=== PATIENT | female | born 2000 | race Caucasian/White ===

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

== ENCOUNTER 2021-12-07 20:39 | Emergency (ER) | payer OTHER ==
[2021-12-07 20:55] VITALS: BP 108/74; PULSE 96; TEMP 97.8; BMI 24.7
== END 2021-12-07 21:44 | disposition home or self-care (01) ==
LOC: JERFT 20:39
DX: Z48.02 Encounter for removal of sutures (principal)
CPT/HCPCS: 99281-25

== ENCOUNTER 2022-08-07 17:05 | Emergency (ER) | payer OTHER ==
[2022-08-07 17:55] VITALS: BP 117/78; PULSE 77; RESP 16; TEMP 98.6; BMI 25.1
[2022-08-07 19:18] LABS: BASO % 0.4 % (0-2.0); HEMATOCRIT 43.2 % (32.4-45.2); HEMOGLOBIN 14.3 GM/dL (10.7-15.3); LYMPH % 24.1 % (8-40); MCH 28.3 pg (25.7-33.7); MCHC 33.2 g/dl (32.0-36.0); MEAN PLT VOLUME 9.5 fl (7.5-11.1); MONO % 9.1 % (3.8-10.2); NEUT % 64.4 % (42.8-82.8); PLATELET COUNT 244 10^3/uL (134-434); RBC 5.07 M/mm3 (3.60-5.2); RDW 12.8 % (11.6-15.6); WHITE BLOOD COUNT 7.7 K/mm3 (4.0-10.0)
[2022-08-07 19:33] LABS: CALCIUM 9.4 mg/dL (8.5-10.1)
[2022-08-07 19:34] LABS: ALBUMIN 4.4 g/dl (3.4-5.0); BLOOD UREA NITROGEN 6.9 mg/dL (7-18)
[2022-08-07 19:37] LABS: CREATININE 0.7 mg/dL (0.55-1.3)
[2022-08-07 19:39] LABS: BILIRUBIN,TOTAL 0.5 mg/dL (0.2-1); TOT PROT 8.1 g/dl (6.4-8.2)
[2022-08-07 19:44] LABS: EPI CELLS 12 /uL (0-25.1); HYALINE CASTS 1 /uL (0-3.1); PH,URINE 5.5 (5.0-8.0); URINE APPEARANCE CLEAR; URINE BACTERIA 67 /uL (0-1359); URINE BILIRUBIN NEGATIVE (NEGATIVE); URINE COLOR YELLOW; URINE GLUCOSE (UA) NEGATIVE (NEGATIVE); URINE KETONE NEGATIVE (NEGATIVE); URINE LEUK ESTERASE NEGATIVE (NEGATIVE); URINE NITRITE NEGATIVE (NEGATIVE); URINE PROTEIN NEGATIVE (NEGATIVE); URINE RBC 15 /uL (0-23.9); URINE UROBILINOGEN 0.2 mg/dL (0.2-1.0); URINE WBC 8 /uL (0-25.8)
[2022-08-07] MEDS ORDERED: RHO(D) IMMUNE GLOBULIN 1,500 UNIT DISP.SYRIN IM ONE (22:11)
== END 2022-08-07 22:57 | disposition home or self-care (01) ==
LOC: JERFT 17:05
PROC: 3E0234Z Introduction of Serum, Toxoid and Vaccine into Muscle, Percutaneous Approach (ICD-10-PCS; principal; 2022-08-07)
DX: O26.851 Spotting complicating pregnancy, first trimester (principal); Z3A.01 Less than 8 weeks gestation of pregnancy
CPT/HCPCS: 36415; 76817-TC; 80053; 81003; 84702; 85025; 86850; 86900; 86901; 86999; 87086; 99284-25; J1561

== ENCOUNTER 2022-08-09 20:58 | Emergency (ER) | payer OTHER ==
[2022-08-09 21:02] VITALS: BP 112/75; PULSE 90; RESP 18; TEMP 98.1; BMI 25.1
[2022-08-10] MEDS ORDERED: SODIUM PHOSPHATE/NA BIPHOS 133 ML ENEMA PR ONE (00:39)
== END 2022-08-10 00:49 | disposition home or self-care (01) ==
LOC: JERFT 20:58
DX: O03.9 Complete or unspecified spontaneous abortion without complication (principal); K59.00 Constipation, unspecified
CPT/HCPCS: 36415; 76817-TC; 84702; 99284-25

== ENCOUNTER 2022-09-05 20:26 | Emergency (ER) | payer OTHER ==
[2022-09-05 21:00] VITALS: PULSE 106; RESP 20; TEMP 97.6
[2022-09-05 21:46] VITALS: BP 107/74; BMI 25.4
[2022-09-06] MEDS ORDERED: ONDANSETRON 4 MG/2 ML VIAL ONE (00:54)
[2022-09-06 01:24] LABS: BASO % 0.4 % (0-2.0); EOS % 2.2 % (0-4.5); HEMOGLOBIN 12.6 GM/dL (10.7-15.3); LYMPH % 29.6 % (8-40); MCH 27.7 pg (25.7-33.7); MCHC 33.1 g/dl (32.0-36.0); MEAN CELL VOLUME 83.6 fl (80-96); MEAN PLT VOLUME 9.6 fl (7.5-11.1); MONO % 11.3 % (3.8-10.2); NEUT % 56.5 % (42.8-82.8); PLATELET COUNT 236 10^3/uL (134-434); RBC 4.54 M/mm3 (3.60-5.2); RDW 12.6 % (11.6-15.6); WHITE BLOOD COUNT 7.9 K/mm3 (4.0-10.0)
[2022-09-06 01:55] LABS: ALBUMIN 3.7 g/dl (3.4-5.0); BLOOD UREA NITROGEN 10.9 mg/dL (7-18)
[2022-09-06 01:58] LABS: CREATININE 0.7 mg/dL (0.55-1.3)
[2022-09-06 02:00] LABS: BILIRUBIN,TOTAL 0.4 mg/dL (0.2-1); TOT PROT 7.2 g/dl (6.4-8.2)
== END 2022-09-06 03:51 | disposition home or self-care (01) ==
LOC: JER 20:26
DX: O20.9 Hemorrhage in early pregnancy, unspecified (principal); Z3A.01 Less than 8 weeks gestation of pregnancy
CPT/HCPCS: 36415; 76817-TC; 80053; 84702; 84703; 85025; 86850; 86870; 86900; 86901; 86902; 99284-25

== ENCOUNTER 2022-11-06 15:35 | Emergency (ER) | payer OTHER ==
[2022-11-06 16:20] VITALS: BP 106/70; PULSE 100; RESP 20; TEMP 98.3; BMI 25.7
[2022-11-06] MEDS ORDERED: SODIUM CHLORIDE 0.9% 500 ML INFUS.BAG IV ONE (17:12)
[2022-11-06 19:06] LABS: BASO % 0.4 % (0-2.0); EOS % 1.6 % (0-4.5); HEMATOCRIT 39.8 % (32.4-45.2); HEMOGLOBIN 13.3 GM/dL (10.7-15.3); LYMPH % 22.6 % (8-40); MCH 28.2 pg (25.7-33.7); MCHC 33.4 g/dl (32.0-36.0); MEAN CELL VOLUME 84.2 fl (80-96); MEAN PLT VOLUME 9.7 fl (7.5-11.1); MONO % 10.5 % (3.8-10.2); NEUT % 64.9 % (42.8-82.8); PLATELET COUNT 257 10^3/uL (134-434); RBC 4.73 M/mm3 (3.60-5.2); RDW 12.9 % (11.6-15.6); WHITE BLOOD COUNT 9.1 K/mm3 (4.0-10.0)
[2022-11-06 19:50] LABS: CALCIUM 9.4 mg/dL (8.5-10.1)
[2022-11-06 19:51] LABS: BLOOD UREA NITROGEN 5.3 mg/dL (7-18)
[2022-11-06 19:54] LABS: CREATININE 0.6 mg/dL (0.55-1.3)
[2022-11-06 19:56] LABS: BILIRUBIN,TOTAL 0.4 mg/dL (0.2-1); TOT PROT 7.7 g/dl (6.4-8.2)
[2022-11-06 20:08] LABS: EPI CELLS 35 /uL (0-25.1); HYALINE CASTS 0 /uL (0-3.1); URINE APPEARANCE CLEAR; URINE BACTERIA 564 /uL (0-1359); URINE BILIRUBIN NEGATIVE (NEGATIVE); URINE COLOR YELLOW; URINE GLUCOSE (UA) NEGATIVE (NEGATIVE); URINE KETONE NEGATIVE (NEGATIVE); URINE LEUK ESTERASE TRACE (NEGATIVE); URINE NITRITE NEGATIVE (NEGATIVE); URINE PROTEIN NEGATIVE (NEGATIVE); URINE RBC 6 /uL (0-23.9); URINE WBC 19 /uL (0-25.8)
== END 2022-11-07 01:57 | disposition home or self-care (01) ==
LOC: JER 15:35
DX: O26.891 Other specified pregnancy related conditions, first trimester (principal); R10.84 Generalized abdominal pain; Z3A.01 Less than 8 weeks gestation of pregnancy
CPT/HCPCS: 36415; 76817-TC; 80053; 81003; 84702; 85025; 86850; 86900; 86901; 87086; 99284-25

== ENCOUNTER 2022-11-11 22:03 | Emergency (ER) | payer OTHER ==
[2022-11-11 22:15] VITALS: BMI 25.0
[2022-11-11] MEDS ORDERED: SODIUM CHLORIDE 0.9% 500 ML INFUS.BAG IV ONE (22:36)
[2022-11-11] MEDS ORDERED: METOCLOPRAMIDE HCL INJECTION 10 MG/2 ML VIAL IVPB ONE (22:52)
[2022-11-11] MEDS ORDERED: METOCLOPRAMIDE HCL INJECTION 10 MG/2 ML VIAL ONE (23:33)
[2022-11-12 00:23] LABS: BASO % 0.1 % (0-2.0); EOS % 1.6 % (0-4.5); HEMOGLOBIN 12.9 GM/dL (10.7-15.3); LYMPH % 20.5 % (8-40); MCH 27.8 pg (25.7-33.7); MEAN CELL VOLUME 84.1 fl (80-96); MEAN PLT VOLUME 9.1 fl (7.5-11.1); MONO % 10.6 % (3.8-10.2); NEUT % 67.2 % (42.8-82.8); PLATELET COUNT 241 10^3/uL (134-434); RBC 4.64 M/mm3 (3.60-5.2); RDW 12.8 % (11.6-15.6); WHITE BLOOD COUNT 8.9 K/mm3 (4.0-10.0)
[2022-11-12 00:41] LABS: URINE APPEARANCE CLOUDY; URINE BILIRUBIN NEGATIVE (NEGATIVE); URINE COLOR DK YELLOW; URINE GLUCOSE (UA) NEGATIVE (NEGATIVE); URINE KETONE >160 (NEGATIVE)
[2022-11-12 00:42] LABS: PH,URINE 6.5 (5.0-8.0); URINE LEUK ESTERASE 1+ (NEGATIVE); URINE NITRITE NEGATIVE (NEGATIVE); URINE PROTEIN 30 (NEGATIVE)
[2022-11-12 00:43] LABS: HYALINE CASTS 15.95 /uL (0-3.1); URINE BACTERIA 7254.8 /uL (0-1359); URINE RBC 23.3 /uL (0-23.9); URINE WBC 389.7 /uL (0-25.8)
[2022-11-12 02:04] LABS: ALBUMIN 3.9 g/dl (3.4-5.0); BLOOD UREA NITROGEN 8.4 mg/dL (7-18)
[2022-11-12 02:08] LABS: CREATININE 0.6 mg/dL (0.55-1.3)
[2022-11-12] MEDS ORDERED: ONDANSETRON 4 MG/2 ML VIAL IVPUSH ONE (02:08)
[2022-11-12 02:09] LABS: BILIRUBIN,TOTAL 0.4 mg/dL (0.2-1); TOT PROT 7.3 g/dl (6.4-8.2)
[2022-11-12] MEDS ORDERED: ONDANSETRON 4 MG/2 ML VIAL ONE (02:11)
[2022-11-12] MEDS ORDERED: CEPHALEXIN MONOHYDRATE 500 MG CAPSULE (UD) PO ONE (05:41)
[2022-11-12 06:51] VITALS: BP 104/55; PULSE 93; RESP 18; TEMP 99.4
[2022-11-12] MEDS ORDERED: CEPHALEXIN MONOHYDRATE 500 MG CAPSULE (UD) ONE (07:52)
== END 2022-11-12 08:22 | disposition home or self-care (01) ==
LOC: JER 22:03
PROC: 3E033GC Introduction of Other Therapeutic Substance into Peripheral Vein, Percutaneous Approach (ICD-10-PCS; principal; 2022-11-11)
DX: O23.41 Unspecified infection of urinary tract in pregnancy, first trimester (principal); O21.9 Vomiting of pregnancy, unspecified; Z3A.01 Less than 8 weeks gestation of pregnancy
CPT/HCPCS: 36415; 76817-TC; 80053; 81003; 83690; 84702; 84703; 85025; 87086; 99284-25

== ENCOUNTER 2022-11-13 18:50 | Emergency (ER) | payer OTHER ==
[2022-11-13 19:05] VITALS: BP 108/62; PULSE 123; RESP 16; TEMP 98.2; BMI 25.0
[2022-11-13] MEDS ORDERED: ONDANSETRON *ODT* 4 MG TABLET ONE (19:48)
[2022-11-13] MEDS ORDERED: ONDANSETRON 4 MG TABLET PO ONE ×2 (19:48→19:51)
[2022-11-13] MEDS ORDERED: METOCLOPRAMIDE HCL INJECTION 10 MG/2 ML VIAL IVPUSH ONE (20:49)
[2022-11-13] MEDS ORDERED: SODIUM CHLORIDE 0.9% 500 ML INFUS.BAG IV ONE (20:49)
[2022-11-13] MEDS ORDERED: CEFTRIAXONE 1 GM in DEXTROSE 5%-WATER - 100 ML IVPB ONE (20:50)
[2022-11-13] MEDS ORDERED: CEFTRIAXONE 1 GM/50 ML BAG ONE (21:15)
[2022-11-13] MEDS ORDERED: METOCLOPRAMIDE HCL INJECTION 10 MG/2 ML VIAL ONE (21:15)
[2022-11-13 21:35] LABS: BASO % 0.1 % (0-2.0); EOS % 0.6 % (0-4.5); HEMATOCRIT 40.5 % (32.4-45.2); HEMOGLOBIN 13.4 GM/dL (10.7-15.3); LYMPH % 10.4 % (8-40); MCH 27.7 pg (25.7-33.7); MCHC 33.2 g/dl (32.0-36.0); MEAN CELL VOLUME 83.5 fl (80-96); MEAN PLT VOLUME 9.4 fl (7.5-11.1); MONO % 9.3 % (3.8-10.2); NEUT % 79.6 % (42.8-82.8); PLATELET COUNT 230 10^3/uL (134-434); RBC 4.85 M/mm3 (3.60-5.2); WHITE BLOOD COUNT 10.8 K/mm3 (4.0-10.0)
[2022-11-13 21:55] LABS: CALCIUM 9.5 mg/dL (8.5-10.1)
[2022-11-13 21:56] LABS: ALBUMIN 4.2 g/dl (3.4-5.0); BLOOD UREA NITROGEN 9.5 mg/dL (7-18)
[2022-11-13 22:01] LABS: BILIRUBIN,TOTAL 0.5 mg/dL (0.2-1); TOT PROT 8.1 g/dl (6.4-8.2)
[2022-11-13 22:23] LABS: CREATININE 0.5 mg/dL (0.55-1.3)
== END 2022-11-13 22:26 | disposition home or self-care (01) ==
LOC: JER 18:50
PROC: 3E03329 Introduction of Other Anti-infective into Peripheral Vein, Percutaneous Approach (ICD-10-PCS; principal; 2022-11-13)
PROC: 3E033GC Introduction of Other Therapeutic Substance into Peripheral Vein, Percutaneous Approach (ICD-10-PCS; 2022-11-13)
DX: O21.9 Vomiting of pregnancy, unspecified (principal); Z3A.01 Less than 8 weeks gestation of pregnancy
CPT/HCPCS: 36415; 80053; 85025; 99284-25

== ENCOUNTER 2023-07-10 06:30 | Inpatient (IN) | payer OTHER ==
[2023-07-10 09:13] VITALS: BMI 27.0
[2023-07-10] MEDS: ELECTROLYTE-148 SOLN 1,000 ML IV SCH ×2 (09:20→13:36)
[2023-07-10] MEDS ORDERED: BUTORPHANOL TARTRATE 1 MG/ML VIAL IVPB PRN (09:24)
[2023-07-10] MEDS ORDERED: AMPICILLIN SODIUM 2 GM VIAL ONE (09:45)
[2023-07-10] MEDS ORDERED: PROMETHAZINE HCL 25 MG/1 ML VIAL IVPB ONE (09:56)
[2023-07-10] MEDS ORDERED: AMPICILLIN - 2 GM in SODIUM CHLORIDE 100 ML IVPB ONE ×2 (09:58→10:26)
[2023-07-10 10:14] LABS: BASO % 0.1 % (0-2.0); EOS % 0.5 % (0-4.5); HEMATOCRIT 37.1 % (32.4-45.2); MCH 27.4 pg (25.7-33.7); MCHC 32.3 g/dl (32.0-36.0); MEAN CELL VOLUME 84.9 fl (80-96); MONO % 7.6 % (3.8-10.2); NEUT % 81.8 % (42.8-82.8); PLATELET COUNT 216 10^3/uL (134-434); RBC 4.37 M/mm3 (3.60-5.2); RDW 12.7 % (11.6-15.6)
[2023-07-10 10:17] LABS: INR 0.89 (0.83-1.09); PROTHROMBIN TIME (PATIENT) 10.3 SEC (9.7-13.0)
[2023-07-10 10:20] LABS: ACTIVATED PTT 23.7 SECONDS (25.2-36.5)
[2023-07-10] MEDS ORDERED: FENTANYL/BUPIVACAINE/NS/PF - PCEA - 50 ML DISP.SYRIN EP ONE (10:55)
[2023-07-10] MEDS ORDERED: LIDOCAINE HCL/EPINEPHRINE/PF 10 ML VIAL ONE (11:03)
[2023-07-10] MEDS ORDERED: BUPIVACAINE HCL/PF 0.25% (2.5MG/ML) 10 ML VIAL ONE ×2 (11:03→11:53)
[2023-07-10 11:15] LABS: CALCIUM 8.7 mg/dL (8.5-10.1)
[2023-07-10 11:16] LABS: BLOOD UREA NITROGEN 8.2 mg/dL (7-18)
[2023-07-10 11:19] LABS: CREATININE 0.6 mg/dL (0.55-1.3)
[2023-07-10] MEDS ORDERED: NALOXONE HCL 0.4 MG/ML VIAL IVPUSH PRN (11:23)
[2023-07-10] MEDS ORDERED: FENTANYL/BUPIVACAINE/NS/PF - PCEA - 50 ML DISP.SYRIN EP SCH (11:30)
[2023-07-10] MEDS ORDERED: FENTANYL CITRATE/PF 50 MCG/ML VIAL ONE ×2 (11:53)
[2023-07-10 12:34] LABS: HIV INTERPRETATION NEGATIVE (NEGATIVE)
[2023-07-10] MEDS ORDERED: AMPICILLIN SODIUM 1 GM VIAL ONE (13:34)
[2023-07-10 13:44] LABS: POC NITRAZINE NEG
[2023-07-10] MEDS ORDERED: AMPICILLIN - 1 GM in SODIUM CHLORIDE 100 ML IVPB SCH (14:00)
[2023-07-10] MEDS ORDERED: LIDOCAINE HCL 1% PRESERVATIVE FREE - 30ML VIAL ONE (14:29)
[2023-07-10] MEDS ORDERED: OXYTOCIN 20 UNITS in 0.9% NS 20 UNIT/1,000 ML INFUS.BAG IV ONE (14:29)
[2023-07-10] MEDS ORDERED: ACETAMINOPHEN 325 MG TABLET (FP) PO PRN (16:02)
[2023-07-10] MEDS ORDERED: METHYLERGONOVINE MALEATE 0.2 MG/1 ML AMP IM PRN (16:02)
[2023-07-10] MEDS ORDERED: BISACODYL 10 MG SUPP.RECT RC PRN (16:02)
[2023-07-10] MEDS ORDERED: WITCH HAZEL 50% (TUCKS) 40 PAD/JAR PAD TP PRN (16:02)
[2023-07-10] MEDS ORDERED: oxyCODONE HCL 5 MG TABLET PO PRN (16:02)
[2023-07-10] MEDS ORDERED: BENZOCAINE 20% 57 GM BOTTLE TP PRN (16:02)
[2023-07-10] MEDS ORDERED: BENZOCAINE 28 GM HEMORRHOIDAL OINTMENT TP PRN (16:02)
[2023-07-10] MEDS ORDERED: OXYTOCIN 20 UNITS in 0.9% NS 20 UNIT/1,000 ML INFUS.BAG IV SCH (16:15)
[2023-07-10 17:26] VITALS: RESP 18
[2023-07-10] MEDS: IBUPROFEN 600 MG TABLET (FP) PO PRN (19:18)
[2023-07-11] MEDS: IBUPROFEN 600 MG TABLET (FP) PO PRN ×4 (01:10→20:28)
[2023-07-11 08:55] LABS: BASO % 0.1 % (0-2.0); EOS % 0.5 % (0-4.5); HEMOGLOBIN 10.3 GM/dL (10.7-15.3); LYMPH % 13.4 % (8-40); MCH 28.2 pg (25.7-33.7); MCHC 33.3 g/dl (32.0-36.0); MEAN CELL VOLUME 84.8 fl (80-96); MEAN PLT VOLUME 10.2 fl (7.5-11.1); MONO % 9.3 % (3.8-10.2); NEUT % 76.7 % (42.8-82.8); PLATELET COUNT 162 10^3/uL (134-434); RBC 3.65 M/mm3 (3.60-5.2); RDW 12.7 % (11.6-15.6); WHITE BLOOD COUNT 10.8 K/mm3 (4.0-10.0)
[2023-07-11] MEDS: PRENATAL VITAMINS W/ FOLIC ACID TABLET (FP) PO SCH (09:48)
[2023-07-11] MEDS ORDERED: SENNOSIDES/DOCUSATE COMBO (SENNA PLUS) TABLET (UD) PO PRN (22:00)
[2023-07-12] MEDS: PRENATAL VITAMINS W/ FOLIC ACID TABLET (FP) PO SCH (09:57)
[2023-07-12 10:34] VITALS: BP 108/59; PULSE 87; TEMP 97.9
== END 2023-07-12 13:40 | disposition home or self-care (01) | DRG 560 ==
LOC: JDEL 06:30 → JLDR 07:55 → J3W 17:00
PROVIDERS: ADMIT Obstetrics & Gynecology; ATTEND Obstetrics & Gynecology
PROC: 0KQM0ZZ Repair Perineum Muscle, Open Approach (ICD-10-PCS; principal; 2023-07-10)
PROC: 10E0XZZ Delivery of Products of Conception, External Approach (ICD-10-PCS; 2023-07-10)
DX: O48.0 Post-term pregnancy (principal); O99.824 Streptococcus B carrier state complicating childbirth; O70.1 Second degree perineal laceration during delivery; Z37.0 Single live birth; Z3A.40 40 weeks gestation of pregnancy
CPT/HCPCS: 36415; 80048; 83986-QW; 85025; 85461; 85610; 85730; 86780; 86850; 86900; 86901; 87389; 96372; J2790